=== PATIENT | male | born 1945 | race Caucasian/White ===

== ENCOUNTER 2018-04-10 22:06 | Emergency (ER) | END 2018-04-11 03:08 | disposition home or self-care (01) ==

== ENCOUNTER 2018-05-08 13:53 | Inpatient (IN) | END 2018-05-13 22:05 | DRG 92 ==

== ENCOUNTER 2018-05-13 10:15 | Inpatient (IN) | END 2018-05-22 10:25 | disposition short-term general hospital (02) | DRG 54 ==

== ENCOUNTER 2018-05-22 09:30 | Inpatient (IN) | END 2018-05-28 21:10 | disposition hospice, home (50) | DRG 54 ==